=== PATIENT | female | born 1965 | race Caucasian/White ===

== ENCOUNTER 2021-08-30 11:31 | Emergency (ER) | payer SELFPAY ==
--- NOTE | 2021-08-30 11:36 | PC.NURSE ---
Pt stated that she is leaving to be seen at another hospital due to the wait. Pt told she can come back and be seen at anytime. Stable and ambulatory on dc
== END 2021-08-31 01:49 | disposition left against medical advice (07) ==
PROVIDERS: PCP Obstetrics & Gynecology
DX: Z53.21 Procedure and treatment not carried out due to patient leaving prior to being seen by health care provider (principal)
CPT/HCPCS: 99199

== ENCOUNTER 2021-08-30 11:53 | Emergency (ER) | payer BC, SELFPAY ==
[2021-08-30 12:34] VITALS: BP 141/83; PULSE 107; RESP 16; TEMP 36.6; O2SAT 100
--- NOTE | 2021-08-30 13:23 | ED.URI ---
HPI - URI/Sore Throat General Chief Complaint: Upper Respiratory Infection Stated Complaint: cold/flu Time Seen by Provider: 08/30/21 13:23 Source: patient and family Mode of arrival: ambulatory Limitations: no limitations History of Present Illness HPI Narrative: Tayler Somers is a 55 yo female with hypothyroid who comes to [facility] with complaints of a headache and sinus congestion. She states she has a lot of difficulty with her sinuses weather changes and that she is currently under a lot of stress, she has some epigastric discomfort but she is started taking Prilosec as prescribed by her PCP and has an appoint with him on Wednesday Related Data Home Medications Medication Instructions Recorded Confirmed levothyroxine 08/30/21 Allergies Allergy/AdvReac Type Severity Reaction Status Date / Time apple Allergy Unknown Unknown Verified 05/30/19 08:44 No Known Drug Allergies Allergy Unknown Verified 05/30/19 08:44 Review of Systems Review of Systems: CONSTITUTIONAL: Denies fever, chills, sweats. Has headache EYES: Denies visual changes, redness, discharge. ENT: Denies rhinorrhea, has congestion, sore throat, otalgia. CARDIOVASCULAR: Denies chest pain, palpitations, edema. RESPIRATORY: Denies dyspnea, wheezing, cough GASTROINTESTINAL: Denies abdominal pain, nausea, vomiting, diarrhea. GENITOURINARY: Denies dysuria, hematuria, abnormal discharge SKIN: Denies rash or itching. NEUROLOGIC: Denies numbness, or focal weakness. PSYCHIATRIC: Denies anxiety or depression. PMFSH Past Medical History Medical History GERD (gastroesophageal reflux disease) Social History Social History (Updated 08/30/21 @ 13:26 by Shannon Alexis CNP) Smoking status: Current every day smoker Tobacco type: cigarettes Alcohol intake: current Comments At time of signature, I agree with nursing past medical, surgical, social and family history. There is no relevant family history pertinent to the presenting complaint. Exam Narrative: GENERAL: This is a well-nourished, well-developed patient, in mild distress. HEAD: normocephalic, atraumatic. EYES: Sclera clear/white. Vision is grossly intact. EARS: External ears normal, auditory canals clear and without drainage, TMs normal without perforation. Hearing grossly intact. NOSE: External nose normal with nasal discharge, nares with redness,has rhinorrhea. THROAT: Mucous membranes moist, posterior pharynx mild erythema NECK: Neck supple, non-tender CARDIOVASCULAR: Regular rate and rhythm without murmurs, gallops, or rubs. RESPIRATORY: Clear to auscultation. Breath sounds equal bilaterally. No wheezes, rales, or rhonchi. GASTROINTESTINAL: Abdomen soft, SKIN: warm, intact with no suspicious lesions or rash, good texture and turgor. NEURO: awake, alert, and oriented to person, place and time. There were no obvious focal neurologic abnormalities. Steady gait EXTREMITIES: Normal range of motion. BACK: Nontender without deformity Course Course Emergency Course: Patient comes to [facility] with complaints of headache and sinus congestion and some lightheadedness earlier this morning that has resolved After exam started on Zithromax and prednisone Follow-up with primary care and discuss her epigastric discomfort with her primary care on Wednesday Vital Signs Vital signs: Vital Signs Temperature 97.8 F 08/30/21 12:34 Pulse Rate 107 H 08/30/21 12:34 Respiratory Rate 16 08/30/21 12:34 Blood Pressure 141/83 H 08/30/21 12:34 Pulse Oximetry 100 08/30/21 12:34 Temperature 97.8 F 08/30/21 12:34 Pulse Rate 107 H 08/30/21 12:34 Respiratory Rate 16 08/30/21 12:34 Blood Pressure 141/83 H 08/30/21 12:34 Pulse Oximetry 100 08/30/21 12:34 MDM - URI/Sore Throat Differential Diagnosis Differential diagnosis: Likely upper respiratory infection, sinusitis, bronchitis, pharyngitis and other Critical Care Time
== END 2021-08-30 13:42 | disposition home or self-care (01) ==
PROVIDERS: Emergency Provider Nurse Practitioner
DX: J01.11 Acute recurrent frontal sinusitis (principal); F17.200 Nicotine dependence, unspecified, uncomplicated
CPT/HCPCS: 99213; G0463

== ENCOUNTER 2021-11-14 10:28 | Outpatient (CLI) | payer BC, SELFPAY ==
--- NOTE | ~2021-11-14 | US_ITS ---
EXAMINATION: US right upper quadrant DATE: 11/14/2021 11:03 INDICATION: Abdominal pain TECHNIQUE: Multiple grayscale and Doppler ultrasound images of the abdomen were obtained. COMPARISON: None available FINDINGS: The head and body of the pancreas are normal. The pancreatic tail is obscured by bowel gas. The liver is normal with normal echogenicity and echotexture. No surface nodularity. Normal hepatope eliana flow in the main portal vein. The gallbladder is normal with no abnormal wall thickening, pericho lecystic fluid or stones. The normal common bile duct measures 4 mm. There was no sonographic Adame sign. IMPRESSION: 1. Normal sonographic study of the gallbladder. Reviewed, dictated and finalized at location A. CONTRACTOR
== END 2021-11-14 10:29 | disposition home or self-care (01) ==
PROVIDERS: PCP Physician Assistant; Visit Provider Physician Assistant
DX: R10.9 Unspecified abdominal pain (principal)
CPT/HCPCS: 76705